=== PATIENT | female | born 1950 | race Caucasian/White ===

== ENCOUNTER 2022-07-03 07:48 | Outpatient (CLI) | payer MEDICARE, SELFPAY ==
--- NOTE | ~2022-07-03 | DEXA_ITS ---
Bone Density Report Name: NICOLAS LUCAS Age: 71 Sex: Female Ethnicity: White Date of : 1950 Indication: postmenopausal; screening for osteoporosis; Referring Provider: ROBBIN, ANKUSH [place] Study: Bone densitometry was performed. Exam Date: July 03, 2022 Accession number: [id number] Bone Density: Region BMD T-score Z-score Classification AP Spine(L1-L4) 0.821 -2.1 0.0 Osteopenia Femoral Neck (Left) 0.636 -1.9 -0.1 Osteopenia Total Hip (Left) 0.710 -1.9 -0.4 Osteopenia Femoral Neck (Right) 0.650 -1.8 0.0 Osteopenia Total Hip (Right) 0.752 -1.6 -0.1 Osteopenia Total Hip Mean 0.731 -1.8 -0.3 Osteopenia World Health Organization criteria for BMD impression classify patients as: Normal (T-score at or above -1.0), Osteopenia (T-score between -1.0 and -2.5), or Osteoporosis (T-score at or below -2.5). 10-year Fracture Risk(1): Major Osteoporotic Fracture 9.9% Hip Fracture 1.9% Reported Risk Factors: [place] (), Neck BMD=0.636, BMI=20.0 (1) FRAX(R) Version 3.08. Fracture probability calculated for an untreated patient. Fracture probability may be lower if the patient has received treatment. Clinical Information Provided by Patient: Has used the following medications: Vitamin D, Calcium Patient maximum height was 65.5 Menopause Age: 47 Drinks caffeinated beverages Onset of menses at age 14 Number of children 3 Impression: The patient has low bone mass, based on the Total Spine T-score. The patient has an estimated ten-year risk of hip fracture of 1.9% and an estimated ten-year risk of major fracture of 9.9%, based on the WHO FRAX algorithm. Discussion: BONE DENSITY IS LOW AT ONE OR MORE SKELETAL SITES. This patient's lowest T-score is low at one or more skeletal sites. It meets the World Health Organization's (WHO) criteria for ?low bone mass? (T-score between -1.0 and -2.5). The patient's 10-year risk of fracture as calculated by FRAX is less than the threshold where pharmacological therapy is recommended by the National Osteoporosis Foundation (NOF). However, all treatment decisions require clinical judgment and consideration of individual patient factors, including patient preferences, comorbidities, previous drug use, risk factors not captured in the FRAX model (e.g., frailty, falls, vitamin D deficiency, increased bone turnover, interval significant decline in bone density) and possible under or overestimation of fracture risk by FRAX. The patient should follow a healthful lifestyle (good nutrition with adequate calcium and vitamin D, and appropriate weight-bearing exercise). Follow-Up: Consider repeating this study in 2 to 3 years to reassess this patient's status, or sooner if there is some new clinical indication. Reported by: CARLINE on 07/03/2022 4:17:00 PM. ___
== END 2022-07-03 07:49 | disposition home or self-care (01) ==
PROVIDERS: Visit Provider Internal Medicine
DX: M85.89 Other specified disorders of bone density and structure, multiple sites (principal)
CPT/HCPCS: 77080

== ENCOUNTER 2025-02-02 10:51 | Emergency (ER) | payer MEDICARE, SELFPAY ==
--- NOTE | ~2025-02-02 | CT_ITS ---
EXAMINATION: CTA chest PE protocol DATE: 02/02/2025 13:26 CDT INDICATION: Shortness of breath TECHNIQUE: Computed tomographic angiography (CTA) of the chest was performed with 100 mL Omnipaque-35 0 intravenous contrast. The dose-length product was 172.89 mGy-cm. Maximum intensity projection 3D-re constructions of the aorta and other arteries were constructed by the technologist on a separate work station. Automated exposure control and iterative reconstruction technique were employed. COMPARISON: Chest dated 02/02/2025 FINDINGS: There is an aberrant right subclavian artery. Study is technically adequate without evidenc e for pulmonary embolism. No thoracic lymphadenopathy. Heart size normal. No significant pleural or p ericardial effusion. Gallbladder is moderately distended. There is a liver cyst, right hepatic lobe. No endobronchial lesions. No pneumothorax. No focal airspace consolidation. No suspicious pulmonary n odules or masses. No acute osseous abnormality. No evidence for aortic aneurysm or dissection. IMPRESSION: 1. No acute cardiopulmonary disease. No evidence for pulmonary embolism. Reviewed, dictated and finalized at location A.
--- NOTE | ~2025-02-02 | XR_ITS ---
EXAMINATION: XR chest 2V 02/02/2025 12:08 INDICATION: Shortness of breath and chest palpitations PROCEDURE: 2 view chest COMPARISON: No prior studies for comparison. FINDINGS: The lungs are clear. The cardiomediastinal silhouette is within normal limits. There are no pleural effusions. There is no pneumothorax suspected. IMPRESSION: 1: NO ACUTE CARDIOPULMONARY DISEASE. Reviewed, dictated and finalized at location A.
--- NOTE | 2025-02-02 11:07 | ECG_ITS ---
Test Date: 2025-02-02 11:12:12 Measurements Intervals [place] Rate: 69 P: 73 WV: 158 QRS: 38 QRSD: 77 T: 43 QT: 401 QTc: 432 Interpretive Statements SINUS RHYTHM WITH OCCASIONAL VENTRICULAR PREMATURE COMPLEXES POSSIBLE LEFT ATRIAL ENLARGEMENT CONSIDER RIGHT VENTRICULAR CONDUCTION DELAY BORDERLINE ECG No previous ECG available for comparison Electronically Signed On 02-02-2025 11:22:18 CDT by Uday Sanchez D.O.
[2025-02-02 11:09] VITALS: BP 166/78; PULSE 74; RESP 17; TEMP 36.8; O2SAT 98
[2025-02-02 11:13] VITALS: PULSE 65; O2SAT 100
[2025-02-02 11:47] LABS: Basophils Percent Auto 0.5 % (0.2-1.2); Eosinophils Absolute Auto 0.1 K/mm3 (0-0.3); Eosinophils Percent Auto 0.9 % (0-4.4); Hematocrit 42.2 % (37.0-47.0); Hemoglobin 13.5 g/dL (12.0-15.0); Immature Granulocyte Absolute 0.01 K/mm3 (0.00-0.031); Immature Granulocyte Percent A 0.2 % (0-0.5); Lymphocytes Absolute Auto 1.25 K/mm3 (0.9-3.2); Lymphocytes Percent Auto 21.8 % (18.3-44.2); Mean Corpuscular Hemoglobin 30.9 pg (26-34); Mean Corpuscular Volume 96.6 fl (80-100); Mean Platelet Volume 9.9 fl (7.4-10.4); Monocytes Absolute Auto 0.4 K/mm3 (0.1-0.6); Monocytes Percent Auto 6.3 % (2.6-8.5); Neutrophils Percent Auto 70.3 % (45.5-73.1); Platelet Count Result 254 k/mm3 (150-375); Red Blood Count 4.37 M/mm3 (4.2-5.4); Red Cell Distribution Width 12.5 % (11.5-14.5); White Blood Count 5.7 K/mm3 (4.5-10.0)
--- OUTSIDE RECORDS SUMMARY | 2025-02-02 11:52 | XMS_ITS | Clinical Summary ---
Author Organization [facility] Address [address] [place] [address] Care Team Providers Care Procurement Technician Name Role Phone Bijan Joy MD Primary Care Provider [phone] Source Comments [facility],non-owned Affiliates and Associated Physician Practices is amultiple site organization consisting of ambulatory clinics and hospital sitesin [place], [place], [place] and [place]. This disclosure is being madepursuant to the Care Everywhere program and may not contain all information available regarding this patient. Last updated 18.[facility] Allergies No known active allergies Medications * Be aware that medications may not be up to date on this document. Alwaysverify current medications with the patient. ciclopirox (Penlac) 8 % solution APPLY 1-2 DROPS TO NAILS DAILY 3 Active nystatin/triamc inolone (Mycolog) 314631-3.1 UNIT/GM-% ointment Apply to affected area 2 times daily 60 g 3 Active Additional Information Patient not taking.Reported on 2023 Active Problems Problem Noted Date Diagnosed Date Encounter for gynecological examination without abnormal finding 06/14/2015 Encounter for routine gynecological examination 03/11/2012 Encounters Date Type Department Care Team Description 11/17/2024 9:30 AM CDT Office Visit [facility] - DRY CLEANING COUNTER CLERK [address] [place] [address] Jane Mendosa MD Well woman exam (Primary Dx) 11/17/2024 Travel from Last 3 Months Immunizations Immunization Administration Dates Next Due INFLUENZA VACCINE 05/31/2018 Family History Medical History Relation Name Comments Heart Disease Father Status: [facility] ed Cancer - Breast Maternal Grandmother Heart Disease Mother Status: [facility] ed Relation Name Status Comments Father Maternal Grandmother Mother Social History Tobacco Use Types Packs/Day Years Used Date Smoking Tobacco: Never Smokeless Tobacco: Never Tobacco Cessation:Counseling Given: Not Answered Alcohol Use Standard Drinks/Week Comments Yes 0 (1 standard drink = 0.6 oz pur e alcohol) Comments No Sex and Gender Information Value Date Recorded Sex Assigned at Not on file 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 Gender Identity Not on file Sexual Orientation Not on file Last Filed Vital Signs Vital Sign Reading Time Taken Comments Blood Pressure 126/66 11/17/2024 9:18 AM CDT Pulse - - Temperature - - Respiratory Rate - - Oxygen Saturation - - Inhaled Oxygen Concentration - - Weight 56.7 kg (125 lb) 11/17/2024 9:18 AM CDT Height 166.4 cm (5' 5.5) 11/17/2024 9:18 AM CDT Body Mass Index 20.48 11/17/2024 9:18 AM CDT Plan of Treatment Upcoming Encounters Date Type Department Care Team (Late st Contact Info) Description 11/23/2025 9:45 AM CDT Office Visit [facility] - DRY CLEANING COUNTER CLERK [address] [place] [address] Jane Castorena MD [address] [place] [address] Health Maintenance Due Date Last Done Comments BONE DENSITY TESTING 1950 COLOGUARD (AGES 45-75) - COLON CA SCREENING 1950 CT COLONOGRAPHY - COLON CA SCREENING 1950 FIT - COLON CA SCREENING 1950 FLEX SIG - COLON CA SCREENING 1950 HEPATITIS C SCREENING 11/08/1970 DTAP/TDAP/TD VACCINES (1 - Tdap) 11/13/1971 PNEUMOCOCCAL VACCINE 50+ (1 of 1 - PCV) 2002 ZOSTER VACCINE (1 of 2) 2002 COVID-19 VACCINE (7 - season) 2024 06/17/2022, 02/06/2022, 06/17/2021, Additional history exists DEPRESSION SCREENING 08/31/2024 MEDICARE AWV CALENDAR YEAR 2024 MAMMOGRAM 08/19/2026 08/19/2024, 08/01, 06/30/2023, Additional history exists Respiratory Syncytial Virus (RSV) Vaccine Pt: or over 60 yrs (1 - 1-dose 75+ series) 11/13/2027 LIPID TESTING 02/23/2029 02/24/2024, 0810/2021, 08/19/2019 COLON MONITORING 10/21/2031 10/21/2021 COLONOSCOPY - COLON CA SCREENING 10/21/2031 10/21/2021 Colorectal Cancer Screening 10/21/2031 INFLUENZA VACCINE Completed 06/16/2024, , 06/03/2021, Additional history exists HEPATITIS B VACCINE Aged Out No longe r eligible based on patient's age to complete this topic HIB VACCINE Aged Out No longer eligi ble based on patient's age to complete this topic HPV VACCINE Aged Out No longer eligi ble based on patient's age to complete this topic MENINGOCOCCAL (Group B) VACCINE SHARED DECISION-MAKING Aged Out No longer eligible based on patient's age to complete this topic MENINGOCOCCAL GROUPS A/C/Y/W VACCINE Aged Out No longer eligible based on patient's age to complete this topic Procedures Procedure Name Priority Date/Time Associated Diagnosis Comments PAP IMAGE-GUIDED W HPV Routine 11/17/2024 10:16 AM CDT Well woman exam HPV PANEL Routine 11/17/2024 10:16 AM CDT Well woman exam MAMMOGRAM Routine 06/30/2023 from Last 3 Months or Most Recently Relevant to Health Maintenance Results * PAP IMAGE-GUIDED W HPV (11/17/2024 10:16 AM CDT) Case Report Gynecologic Cytology Report Case: [id number] Authorizing Provider: Jane Castorena, Collected: 11/17/2024 10:16 AM Ordering Location: [facility] - Received: 11/18/2024 12:05 PM DRY CLEANING COUNTER CLERK First Screen: Marcel Banks CT(ASCP) Specimen: THINPREP - IMAGE GUIDED, Cervix/Endocervix 11/21/2024 10:29 AM CDT [facility] LMP menopause 11/21/2024 10:29 AM CDT [facility] Menstrual Status Postmenopausal 10/30 10:29 AM CDT [facility] Specimen Adequacy Satisfactory for evaluation, endocervical/trans formation zone component present. 11/21/2024 10:29 AM CDT [facility] Categorization Negative for intraepithelial lesion or malignancy. 11/21/2024 10:29 AM CDT [facility] Interpretation TUBE KNITTER Negative for intraepithelial lesion or malignancy. 11/21/2024 10:29 AM CDT [facility] at 1029 CDT Other Atrophic changes. 025 10:29 AM CDT [facility] Pap Footnote The Pap Smear is a screening test. False positive and false negative results occur. Negative results do not preclude abnormalities, thus clinical correlation is required. This specimen was evaluated by the ThinPrep Imaging System along with an additional manual rescreening by a automobile rental representative and/or pathologist. 11/21/2024 10:29 AM CDT [facility] Embedded Images 10:29 AM CDT [facility] Pathology/Cytolo gy MISCELLANEOUS SAMPLES / Unknown 11/17/2024 10:16 AM CDT 11/18/2024 12:05 PM CDT Jane Castorena MD LAB - PATHOLOGY/CYTO LOGY ORDERABLES Final Result [facility] [address] [phone] * HPV PANEL (11/17/2024 10:16 AM CDT) High Risk HPV 16 NEGATIVE NEGATIVE 11/19/2024 12:25 AM CDT [facility] High Risk HPV 18 NEGATIVE NEGATIVE 11/19/2024 12:25 AM CDT [facility] High Risk HPV Other NEGATIVE NEGATIVE 11/19/2024 12:25 AM CDT [facility] Pathology/Cytolo gy MISCELLANEOUS SAMPLES / Unknown 11/17/2024 10:16 AM CDT 11/18/2024 12:05 PM CDT Narrative [facility] - 11/19/2024 12:25 AM CDT This test amplifies DNA of HPV16, HPV18 and twelve other high risk types (31, 33, 35, 39, 45, 51, 52, 56, 58, 59, 66, 68) without differentiation. A negative result does not preclude the presence of HPV infection because results depend on adequate specimen collection, absence of inhibitors and sufficient DNA to be detected. Results should be interpreted in conjunction with other available laboratory and clinical data. Jane Castorena MD LAB - MICROBIOLOGY O RDERABLES Final Result [facility] [address] [place] [address], [facility] [phone] * MAMMOGRAM (06/30/2023) Anatomical Region Laterality Modality Other Historical Provider SCANNING ONLY Final Res ult from Last 3 Months or Most Recently Relevant to Health Maintenance Insurance AETNA AETNA MEDICARE ADV Care Teams Procurement Technician Relationship Specialty [place] [address] [phone] PCP - General 02/23/09
[2025-02-02 11:56] LABS: Alanine Aminotransferase 25 U/L (6-35); Albumin Level 4.6 g/dL (3.5-5.1); Alkaline Phosphatase 46 U/L (38-126); Anion Gap 12 mmol/L (4-12); Aspartate Amino Transferase 33 U/L (14-36); Bilirubin,Total 0.4 mg/dL (0.2-1.3); Blood Urea Nitrogen 16 mg/dL (7-17); Calcium 9.7 mg/dL (8.4-10.2); Carbon Dioxide 24 mmol/L (22-30); Chloride 107 mmol/L (98-107); Estimated Glomerular Filt Rate > 60; Glucose 152 mg/dL (65-110); Potassium 4.1 mmol/L (3.4-5.0); Sodium 143 mmol/L (137-145); Total Protein 7.6 g/dL (6.3-8.2)
--- OUTSIDE RECORDS SUMMARY | 2025-02-02 12:31 | XMS_ITS | Clinical Summary ---
Author Organization [facility] Address [address] [place] [address] Care Team Providers Care Farmworker [employer] Name Role Phone Bijan Joy MD Primary Care Provider [phone] Source Comments [facility],non-owned Affiliates and Associated Physician Practices is amultiple site organization consisting of ambulatory clinics and hospital sitesin [place], [place], [place] and [place]. This disclosure is being madepursuant to the Care Everywhere program and may not contain all information available regarding this patient. Last updated 18.[facility] Allergies No known active allergies Medications * Be aware that medications may not be up to date on this document. Alwaysverify current medications with the patient. ciclopirox (Penlac) 8 % solution APPLY 1-2 DROPS TO NAILS DAILY 3 Active nystatin/triamc inolone (Mycolog) 010094-1.1 UNIT/GM-% ointment Apply to affected area 2 times daily 60 g 3 Active Additional Information Patient not taking.Reported on 2023 Active Problems Problem Noted Date Diagnosed Date Encounter for gynecological examination without abnormal finding 06/14/2015 Encounter for routine gynecological examination 03/11/2012 Encounters Date Type Department Care Team Description 11/17/2024 9:30 AM CDT Office Visit [facility] - TIP STRETCHER [address] [place] [address] Jane Mendosa MD Well woman exam (Primary Dx) 11/17/2024 Travel from Last 3 Months Immunizations Immunization Administration Dates Next Due INFLUENZA VACCINE 05/31/2018 Family History Medical History Relation Name Comments Heart Disease Father Status: [facility] ed Cancer - Breast Maternal Grandmother Heart Disease Mother Status: [facility] ed Relation Name Status Comments Father [...] on file Legal Sex Female 5:28 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 Gender Identity Not on file Sexual Orientation [...] Description 11/23/2025 9:45 AM CDT Office Visit [facility] - TIP STRETCHER [address] [place] [address] Jane Castorena MD [address] [place] [address] Health Maintenance Due Date Last [...] CDT) Case Report Gynecologic Cytology Report Case: [id number] Authorizing Provider: Jane Castorena, Collected: 11/17/2024 10:16 AM Ordering Location: [facility] - Received: 11/18/2024 12:05 PM TIP STRETCHER First Screen: Marcel Banks CT(ASCP) Specimen: THINPREP [...] 10:29 AM CDT [facility] Interpretation BRIM PRESSER Negative for intraepithelial lesion or malignancy. 11/21/2024 [...] with an additional manual rescreening by a contact and service clerks supervisor and/or pathologist. 11/21/2024 10:29 AM CDT [facility] Embedded Images 10:29 AM CDT [facility] Pathology/Cytolo gy MISCELLANEOUS SAMPLES / Unknown 11/17/2024 10:16 AM CDT 11/18/2024 12:05 PM CDT Jane Castorena MD LAB - PATHOLOGY/CYTO LOGY ORDERABLES Final Result [facility] [address] [phone] * HPV PANEL (11/17/2024 10:16 AM CDT) High Risk HPV 16 NEGATIVE NEGATIVE 11/19/2024 12:25 AM CDT [facility] High Risk HPV 18 NEGATIVE NEGATIVE 11/19/2024 12:25 AM CDT [facility] High Risk HPV Other NEGATIVE NEGATIVE 11/19/2024 12:25 AM CDT [facility] Pathology/Cytolo gy MISCELLANEOUS SAMPLES / Unknown 11/17/2024 10:16 AM CDT 11/18/2024 12:05 PM CDT Narrative [facility] - 11/19/2024 12:25 AM CDT [...] LAB - MICROBIOLOGY O RDERABLES Final Result [facility] [address] [place] [address], [facility] [phone] * MAMMOGRAM (06/30/2023) Anatomical Region Laterality Modality Other Historical Provider SCANNING ONLY Final Res ult from Last 3 Months or Most Recently Relevant to Health Maintenance Insurance AETNA AETNA MEDICARE ADV Care Teams Farmworker [employer] Relationship Specialty [place] [address] [phone] PCP - General 02/23/09
--- OUTSIDE RECORDS SUMMARY | 2025-02-02 12:31 | XMS_ITS | Clinical Summary ---
Author Organization [facility] Address [address] [place] [address] Care Team Providers Care Chief Engineer Research Name Role Phone Bijan Joy MD Primary Care Provider [phone] Jane Castorena MD Unavailable [phone] Allergies No known active allergies Medications No known medications Active Problems Problem Noted Date Diagnosed Date Encounter for screening colonoscopy 06/27/2021 Overview (06/27/2021): Added automatically from request for surgery [id number] Surgical History Surgery Date Site/Laterality Comments COLONOSCOPY 05/26/2011 BREAST BIOPSY 1999? benign needle bx, unsure which breast, no scar FLUORO GUIDED INJECTION SHOULDER RIGHT 12/23/2023 Right Family History Medical History Relation Name Comments Breast cancer Father's Sister great aunt Breast cancer Paternal Grandmother Ovarian cancer Neg Hx Thyroid cancer Neg Hx Relation Name Status Comments Father's Sister great aunt Paternal Grandmother Social History Tobacco Use Types Packs/Day Years Used Date Smoking Tobacco: Never Assessed Comments No Sex and Gender Information Value Date Recorded Sex Assigned at Not on file Legal Sex Female 4:37 AM CORRECTIONAL OFFICER SERGEANT Gender Identity Not on file Sexual Orientation Not on file Obstetrics History Para Term AB IAB SAB Ectopic Multiple Livin g Live Births 3 3 3 Date Outcome GA Total Labor Labor/2nd/3rd Weight Sex Type Anes PTL Jacqueline A1 A5 Name Clin Term Term Term Last Filed Vital Signs Vital Sign Reading Time Taken Comments Blood Pressure 126/56 12/23/2023 1:43 PM CDT Pulse 59 12/23/2023 1:43 PM CDT Temperature 36.6 C (97.8 F) 10/21/2021 10:01 AM CORRECTIONAL OFFICER SERGEANT Respiratory Rate 20 12/23/2023 1:43 PM CDT Oxygen Saturation 100% 10/21/2021 10:01 AM CORRECTIONAL OFFICER SERGEANT Inhaled Oxygen Concentration - - Weight 56.7 kg (125 lb) 10/21/2021 8:42 AM CORRECTIONAL OFFICER SERGEANT Height 166.4 cm (5' 5.5) 06/30/2023 12:19 PM CD T Body Mass Index 20.48 10/21/2021 8:42 AM CORRECTIONAL OFFICER SERGEANT Plan of Treatment Health Maintenance Due Date Last Done Comments Depression Screening 1950 Hepatitis C Screening 1950 Osteoporosis Screening-Bone Density Scan 1950 DTaP/Tdap/Td Vaccine (1 - Tdap) 11/13/1963 Hepatitis B Screening 1970 Well Visit 65+ 2017 Pneumococcal vaccine 65+ (2 of 2 - PPSV23) 08/19/2020 08/19/2019 Fall Risk Assessment 10/21/2022 10/21/2021 Breast Cancer Screening-Mammogram 08/19/2025 08/19/2024, 06/30/2023, 05/06/2022, Additional history exists Colon Cancer Screening-Colonoscopy 10/21/2031 10/21/2021, 05/26/2011 Colon Cancer Screening-CT Colonography Discontinued 10/21/2021, 05/26/2011 Colon Cancer Screening-DNA Stool Discontinued 10/21/19 22, 05/26/2011 Colon Cancer Screening-FIT Discontinued 10/21/2021, Colon Cancer Screening-Sigmoidoscopy Discontinued 10/21/2021, 05/26/2011 Zoster Vaccine Completed 07/29/2023, 05/06/2023 Influenza Vaccine Completed 06/16/2024, , 05/31/2018 Procedures Procedure Name Priority Date/Time Associated Diagnosis Comments SCREENING MAMMOGRAM BILATERAL W CHAPIN Schedule Routine, Read Routine (OP Routine) 08/19/2024 10:42 AM CORRECTIONAL OFFICER SERGEANT Screening mammogram, encounter for COLONOSCOPY 10/21/2021 8:30 AM CORRECTIONAL OFFICER SERGEANT from Last 3 Months or Most Recently Relevant to Health Maintenance Results * Screening Mammogram Bilateral W Chapin (08/19/2024 10:42 AM CORRECTIONAL OFFICER SERGEANT) Anatomical Region Laterality Modality Breast Bilateral Mammography 08/19/2024 11:5 9 AM CORRECTIONAL OFFICER SERGEANT Impressions 08/19/2024 11:59 AM CORRECTIONAL OFFICER SERGEANT No evidence of malignancy in either breast. FINAL ASSESSMENT: BI-RADS Category 1: Negative. RECOMMENDATION: Recommend return for annual screening mammogram in 12 months. Electronically signed by: Angel Zhao M.D. Narrative 08/19/2024 11:59 AM CORRECTIONAL OFFICER SERGEANT EXAMINATION: BILATERAL SCREENING MAMMOGRAM COMPARISON: 06/30/2023, 05/06/2022, 04/24/2021, 04/21/2020, 02/17/2019 TECHNIQUE: Full-field 2D and digital breast tomosynthesis (DBT) images were obtained. CAD was utilized. BREAST PARENCHYMAL COMPOSITION: There are scattered areas of fibroglandular density. FINDINGS: There is no suspicious mass, calcification, or distortion in either breast. There is no new suspicious finding in either breast on mammogram. us Self Screening Mammogram IMG MAMMO PROCEDURES Fi nal Result * COLONOSCOPY (10/21/2021 8:30 AM CORRECTIONAL OFFICER SERGEANT) Anatomical Region Laterality Modality Other Narrative Procedure Note Pato Salter MD - 10/21/2021 8:30 AM CST [facility] Patient Name: Nicolas Lucas Procedure Date: 10/21/2021 8:30 AM Date of : 1950 Admit Type: Outpatient Age: 70 Gender: Female Attending MD: Pato Salter M.D. Room: [facility] ENDOSCOPY ROOM 1 Note Status: Finalized Patient Profile: This is a 70 year old female. No family history of colon cancer. No specific GI complaints Procedure: Colonoscopy Indications: Screening for colorectal malignant neoplasm Referring MD: Bijan Joy M.D. Providers: Pato Salter M.D. Impression: - One 5 mm polyp in the proximal sigmoid colon, removed with a jumbo cold forceps. Resected and retrieved. - Diverticulosis in the mid sigmoid colon and inthe distal sigmoid colon. - Internal hemorrhoids. Recommendation: - Await pathology results. - Repeat colonoscopy in 5-8 years for screening purposes. Medicines: Monitored Anesthesia Care Complications: No immediate complications. Estimated Blood Loss: Estimated blood loss: none. Procedure: Pre-Anesthesia Assessment: - Prior to the procedure, a History and Physicalwas performed, and patient medications and allergieswere reviewed. The patient's tolerance of previous anesthesia was also reviewed. The risks andbenefits of the procedure and the sedation options and risks were discussed with the patient. All questions were answered, and informed consent was obtained. Prior Anticoagulants: The patient has taken no previous anticoagulant or antiplatelet agents. ASA Grade Assessment: I - A normal, healthy patient. After reviewing the risks and benefits, the patient was deemed in satisfactory condition to undergo the procedure. The benefits, risks and alternatives of theprocedure and sedation were discussed and informed consentwas obtained. All questions were answered. Please referto the signed informed consent document in the medical record. The bowel preparation used was Miralax and bisacodyl tablets via split dose instruction. The scope was passed under direct vision. The Pediatric Colonoscope PCF-H190L [id number] was introducedthrough the anus and advanced to the the cecum, identifiedby appendiceal orifice and ileocecal valve. Thequality of the bowel preparation was good. Bowel prep was administered using a split dose. Findings: The perianal and digital rectal examinations were normal. The cecum appeared normal. The descending colon, transverse colon and ascending colon appeared normal. A 5 mm polyp was found in the proximal sigmoid colon. The polyp was semi-sessile. The polyp was removed with a jumbo cold forceps.Resection and retrieval were complete. Many small-mouthed diverticula were found in the mid sigmoid colonand distal sigmoid colon. Internal hemorrhoids were found during retroflexion. The hemorrhoids were small. Electronically signed by Pato Salter M.D. Pato Salter M.D. 10/21/2021 9:36:18 AM Number of Addenda: 0 Note Initiated On: 10/21/2021 8:30 AM Procedure Code(s): --- Professional --- 00380, Colonoscopy, flexible; with biopsy, single or multiple Diagnosis Code(s): --- Professional --- Z12.11, Encounter for screening for malignant neoplasm of colon K64.8, Other hemorrhoids K63.5, Polyp of colon K57.30, Diverticulosis of large intestine without perforation orabscess without bleeding CPT copyright 2019 [employer]. All rights reserved. The codes documented in this report are preliminary and upon pianos and organs salesperson reviewmay be revised to meet current compliance requirements. Recognized by the [employer] for promoting quality in endoscopy Pato Salter MD ENDOSCOPY PROCEDURES Final Result from Last 3 Months or Most Recently Relevant to Health Maintenance [place] [address] [place] [address] MEDICARE [place]ICE [place] T MEDICARE Advance Directives For more information, please contact: [phone] * Full Code (Latest Code Status on File) Date Activated Date Inactivated Comments 10/21/2021 8:44 AM 10/21/2021 2:23 PM * Full Code Date Activated Date Inactivated Comments 10/21/2021 8:44 AM 10/21/2021 8:44 AM Care Teams Chief Engineer Research Relationship Specialty Start Date End Date Bijan Joy MD PCP - General 01/22/17 Jane Castorena MD [address] [address] Referring Physician Obstetrics and Gynecology 06/30/23
--- OUTSIDE RECORDS SUMMARY | 2025-02-02 12:31 | XMS_ITS | Referral Summary ---
Author Organization [facility] Address [address] [place] [address] Care Team Providers Care Canary Breeder Name Role Phone Bijan Joy MD Primary Care Provider [phone] Jane Castorena MD Unavailable [phone] Allergies No known active allergies Medications No known medications Active Problems Problem Noted Date Diagnosed Date Encounter for screening colonoscopy 06/27/2021 Overview (06/27/2021): Added automatically from request for surgery [id number] Social History Tobacco Use Types Packs/Day Years Used Date Smoking Tobacco: Never Assessed Comments No Sex and Gender Information Value Date Recorded Sex Assigned at Not on file Legal Sex Female 4:37 AM CARDIOVASCULAR SURGICAL TECH Gender Identity Not on file Sexual Orientation Not on file Last Filed Vital Signs Vital Sign Reading Time Taken Comments Blood Pressure 126/56 12/23/2023 1:43 PM CDT Pulse 59 12/23/2023 1:43 PM CDT Temperature 36.6 C (97.8 F) 10/21/2021 10:01 AM CARDIOVASCULAR SURGICAL TECH Respiratory Rate 20 12/23/2023 1:43 PM CDT Oxygen Saturation 100% 10/21/2021 10:01 AM CARDIOVASCULAR SURGICAL TECH Inhaled Oxygen Concentration - - Weight 56.7 kg (125 lb) 10/21/2021 8:42 AM CARDIOVASCULAR SURGICAL TECH Height 166.4 cm (5' 5.5) 06/30/2023 12:19 PM CD T Body Mass Index 20.48 10/21/2021 8:42 AM CARDIOVASCULAR SURGICAL TECH Plan of Treatment Not on file Procedures Procedure Name Priority Date/Time Associated Diagnosis Comments SCREENING MAMMOGRAM BILATERAL W CHAPIN Schedule Routine, Read Routine (OP Routine) 08/19/2024 10:42 AM CARDIOVASCULAR SURGICAL TECH Screening mammogram, encounter for COLONOSCOPY 10/21/2021 8:30 AM CARDIOVASCULAR SURGICAL TECH from Last 3 Months or Most Recently Relevant to Health Maintenance Results * Screening Mammogram Bilateral W Chapin (08/19/2024 10:42 AM CARDIOVASCULAR SURGICAL TECH) Anatomical Region Laterality Modality Breast Bilateral Mammography 08/19/2024 11:5 9 AM CARDIOVASCULAR SURGICAL TECH Impressions 08/19/2024 11:59 AM CARDIOVASCULAR SURGICAL TECH No evidence of malignancy in either breast. FINAL ASSESSMENT: BI-RADS Category 1: Negative. RECOMMENDATION: Recommend return for annual screening mammogram in 12 months. Electronically signed by: Angel Zhao M.D. Narrative 08/19/2024 11:59 AM CARDIOVASCULAR SURGICAL TECH EXAMINATION: BILATERAL SCREENING MAMMOGRAM COMPARISON: 06/30/2023, 05/06/2022, [...] nal Result * COLONOSCOPY (10/21/2021 8:30 AM CARDIOVASCULAR SURGICAL TECH) Anatomical Region Laterality Modality Other Narrative Procedure Note Pato Salter MD - 10/21/2021 8:30 AM CST [facility] Patient Name: Nicolas Lucas Procedure Date: 10/21/2021 8:30 AM Date of : 1950 Admit Type: Outpatient Age: 70 Gender: Female Attending MD: Pato Salter M.D. Room: [facility] ENDOSCOPY ROOM 1 Note Status: Finalized Patient [...] under direct vision. The Pediatric Colonoscope PCF-H190L [id number] was introducedthrough the anus and advanced to [...] 8:30 AM Procedure Code(s): --- Professional --- 68927, Colonoscopy, flexible; with biopsy, single or multiple Diagnosis Code(s): --- Professional --- Z12.11, Encounter for screening for malignant neoplasm of colon K64.8, Other hemorrhoids K63.5, Polyp of colon K57.30, Diverticulosis of large intestine without perforation orabscess without bleeding CPT copyright 2019 [employer]. All rights reserved. The codes documented in this report are preliminary and upon certified professional coder reviewmay be revised to meet current compliance requirements. Recognized by the [employer] for promoting quality in endoscopy Pato Salter MD ENDOSCOPY PROCEDURES Final Result from Last 3 Months or Most Recently Relevant to Health Maintenance Insurance [employer] [facility] MED[facility] CHOICE PLUS [facility] HMO/PPO Address: [address] [address] [place] [address] [facility] MEDICARE ADVANTAGE [facility] MEDIC[facility] Address: [address] [address] [place] [address] MEDICARE MEDICARE Advance Directives For more information, please contact: [phone] * Full Code (Latest Code Status on File) Date Activated Date Inactivated Comments 10/21/2021 8:44 AM 10/21/2021 2:23 PM * Full Code Date Activated Date Inactivated Comments 10/21/2021 8:44 AM 10/21/2021 8:44 AM Care Teams Canary Breeder Relationship Specialty Start Date End Date Bijan Joy MD PCP - General 01/22/17 Jane Castorena MD [address] [address] Referring Physician Obstetrics and Gynecology 06/30/23
--- NOTE | 2025-02-02 12:43 | ED_ITS ---
HPI - SOB/Dyspnea General Chief Complaint: Shortness of Breath/Dyspnea Stated Complaint: SOB, rapid HR Time Seen by Provider: 02/02/25 11:13 History of Present Illness HPI Narrative: Patient is a 74-year-old female who presents to the ER with complaints of shortness of breath and palpitations. She reports her symptoms started on Thursday, 5 days ago. Patient reports she walks every day and started experiencing increased shortness of breath while she was walking. She reports the symptoms have occurred intermittently since then. Patient denies any alcohol use or cigarette smoking. She also endorses right shoulder/upper arm pain for which she sees an orthopedic surgeon. Patient denies any recent fevers, lower extremity swelling, or back pain. She denies any medical history and reports she does not take any daily medications. Related Data Allergies Allergy/AdvReac Type Severity Reaction Status Date / Time No Known Allergies Allergy Verified 02/02/25 11:12 Review of Systems 2 Review of Systems: All systems reviewed & are unremarkable except as noted in HPI and below Exam 2 Narrative: GENERAL: Well appearing, well-nourished, non-toxic, in no acute distress. HEAD: Normocephalic, atraumatic. NECK: Supple. No adenopathy, no masses. RESPIRATORY: Airway patent, respirations nonlabored. Clear to auscultation bilaterally, no rales, rhonchi, wheezing. CARDIOVASCULAR: Regular rate and rhythm without murmurs, rubs, or gallops. Peripheral pulses 2+ and equal bilaterally. ABDOMINAL: Soft, nontender, nondistended, no hepatosplenomegaly. Normoactive BS. MUSCULOSKELETAL: Moves all extremities. Strength/ROM intact without gross deformities. R shoulder tight with manipulation, pain is reproducible. SKIN: Warm, dry, normal color. No rashes. NEURO: A&O X3. Speech clear. Cranial nerves II-XII intact. No ataxic movements. PSYCHIATRIC: Appropriate mood and affect. Normal interaction. Course Vital Signs Vital signs: Vital Signs Temperature 36.8 C 02/02/25 11:09 Pulse Rate 74 02/02/25 11:09 Respiratory Rate 17 02/02/25 11:09 Blood Pressure 166/78 H 02/02/25 11:09 Pulse Oximetry 98 02/02/25 11:09 Oxygen Delivery Room Air 02/02/25 11:09 Temperature 36.8 C 02/02/25 11:09 Pulse Rate 65 02/02/25 14:04 Respiratory Rate 14 02/02/25 14:04 Blood Pressure 166/69 H 02/02/25 14:04 Pulse Oximetry 95 02/02/25 14:04 Oxygen Delivery Room Air 02/02/25 11:13 MDM - SOB/Dyspnea MDM Narrative Medical decision making narrative: Patient is a 74-year-old female who presents to the ER with complaints of shortness of breath and palpitations. She reports her symptoms started on Thursday, 5 days ago. Patient reports she walks every day and started experiencing increased shortness of breath while she was walking. She reports the symptoms have occurred intermittently since then. Patient denies any alcohol use or cigarette smoking. She also endorses right shoulder/upper arm pain for which she sees an orthopedic surgeon. Patient denies any recent fevers, lower extremity swelling, or back pain. She denies any medical history and reports she does not take any daily medications. Labs Ordered: CBC, CMP, troponin, TSH, magnesium, COVID/flu/RSV swab Imaging Ordered: CTA chest PE, chest x-ray Medications Ordered: 1 L normal saline IV bolus Results: Pt's CT scan indicates No acute cardiopulmonary disease. No evidence for pulmonary embolism. Diagnosis: chest palpitations, shortness of breath, mild dehydration, primary hypertension Risks: HEART score: low risk HEART Score for Major Cardiac Events from [email or web address] on 02/02/2025 All calculations should be rechecked by clinician prior to use RESULT SUMMARY: 2 points Low Score (0-3 points) Risk of MACE of 0.9-1.7%. INPUTS: History ?> 0 = Slightly suspicious EKG ?> 0 = Normal Age ?> 2 = >=5 Risk factors ?> 0 = No known risk factors Initial troponin ?> 0 = <=Normal limit Patient Education/Shared MDM: Results of lab work and imaging shared with patient. Patient strongly advised to maintain hydration status upon discharge and follow-up with their PCP as soon as possible regarding her elevated blood pressure readings here in the ER. She will not be discharged home with any new prescriptions. Strict return precautions provided. Patient verbalized understanding and is in agreement with plan. Vital signs stable at time of discharge. All questions answered. Differential Diagnosis Differential diagnosis: Likely community acquired pneumonia, pulmonary embolism and other (Atypical chest pain, shortness of breath) Lab Data Attestation: I reviewed the patient's lab results. 02/02/25 11:24 02/02/25 11:24 Labs: Lab Results 02/02/25 02/02/25 02/02/25 Range/Units 11:24 12:24 12:53 WBC 5.7 (4.5-10.0) K/mm3 RBC 4.37 (4.2-5.4) M/mm3 Hgb 13.5 (12.0-15.0) g/dL Hct 42.2 (37.0-47.0) % MCV 96.6 (80-100) fl MCH 30.9 (26-34) pg MCHC 32.0 (32-36) g/dl RDW 12.5 (11.5-14.5) % Plt Count 254 (150-375) k/mm3 MPV 9.9 (7.4-10.4) fl Immature Gran % (Auto) 0.2 (0-0.5) % Neut % (Auto) 70.3 (45.5-73.1) % Lymph % (Auto) 21.8 (18.3-44.2) % Gaston % (Auto) 6.3 (2.6-8.5) % Eos % (Auto) 0.9 (0-4.4) % Baso % (Auto) 0.5 (0.2-1.2) % Lymph # (Auto) 1.25 (0.9-3.2) K/mm3 Gaston # (Auto) 0.4 (0.1-0.6) K/mm3 Eos # (Auto) 0.1 (0-0.3) K/mm3 Baso # (Auto) 0.0 (0.0-0.1) K/mm3 Abs Immat Gran (auto) 0.01 (0.00-0.031) K/mm3 Absolute Neuts (auto) 4.0 (1.3-6.7) K/mm3 Absolute Nucleated RBC 0.000 (0.0-0.012) K/mm3 Nucleated RBC % 0.0 (0.0-0.2) % Sodium 143 (137-145) mmol/L Potassium 4.1 (3.4-5.0) mmol/L Chloride 107 (98-107) mmol/L Carbon Dioxide 24 (22-30) mmol/L Anion Gap 12 (4-12) mmol/L BUN 16 (7-17) mg/dL Creatinine 0.62 L (0.7-1.0) mg/dL Estim Creat Clear Calc Not Reportable Estimated GFR > 60 (59 - ) Glucose 152 H (65-110) mg/dL Calcium 9.7 (8.4-10.2) mg/dL Magnesium 2.0 (1.6-2.3) mg/dL Total Bilirubin 0.4 (0.2-1.3) mg/dL AST 33 (14-36) U/L ALT 25 (6-35) U/L Alkaline Phosphatase 46 (38-126) U/L Troponin I < 0.012 (0.000-0.034) ng/mL Total Protein 7.6 (6.3-8.2) g/dL Albumin 4.6 (3.5-5.1) g/dL TSH (Reflex) 1.050 (0.465-4.68) uIU/mL Influenza A (RT-PCR) Negative (Negative) Influenza B (RT-PCR) Negative (Negative) RSV (RT-PCR) Negative (Negative) SARS-CoV-2 RNA (RT-PCR) Negative (Negative) Imaging Data Attestation: I personally reviewed and interpreted this imaging study as follows: Radiologist's impression: Impressions Chest X-Ray 02/02/25 12:08 IMPRESSION: 1: NO ACUTE CARDIOPULMONARY DISEASE. Chest CTA 02/02/25 13:26 IMPRESSION: 1. No acute cardiopulmonary disease. No evidence for pulmonary embolism. Discharge Plan Discharge Clinical Impression: Atypical chest pain, Mild shortness of breath, Hypertension, Dehydration, mild Patient Disposition: Home Condition: Stable Instructions: Antibiotic Form, Shortness of Breath (ED) Additional Instructions: Please return to the ER with any worsening symptoms. Follow-up with primary care provider as soon as possible for follow-up on your blood pressure. Continue staying active and drinking lots of water. Patient Language: Grenadian Follow-up/Referrals: Rufino,Bijan York MD [Primary Care Provider] - Time of Disposition: 14:54
[2025-02-02 12:55] VITALS: BP 176/76; PULSE 53; RESP 12; O2SAT 99
[2025-02-02] MEDS: SODIUM CHLORIDE 0.9% IV 1,000 ML 999 ML IV CONT (12:55)
--- NOTE | 2025-02-02 12:57 | PC.NURSE ---
called lab to add on MG, Trop I, and TSH Reflex
[2025-02-02 13:37] LABS: Influenza A QL RT-PCR Negative (Negative); Influenza B QL RT-PCR Negative (Negative); RSV RNA, RT-PCR Negative (Negative); SARS-CoV-2 RNA PCR Negative (Negative)
[2025-02-02 14:04] VITALS: BP 166/69; PULSE 65; RESP 14; O2SAT 95
[2025-02-02 14:24] LABS: Troponin I < 0.012 ng/mL (0.000-0.034)
[2025-02-02 15:02] VITALS: BP 153/63; PULSE 89; RESP 18; O2SAT 97
== END 2025-02-02 15:05 | disposition home or self-care (01) ==
PROVIDERS: Emergency Medicine; Emergency Provider Registered Nurse; PCP Internal Medicine
DX: E86.0 Dehydration (principal); R06.02 Shortness of breath; R07.89 Other chest pain; I10 Essential (primary) hypertension; Z20.822 Contact with and (suspected) exposure to COVID-19; I49.3 Ventricular premature depolarization; R94.31 Abnormal electrocardiogram [ECG] [EKG]
CPT/HCPCS: 36415; 71046; 71275; 80053; 83735; 84443; 84484; 85025; 87637; 93005; 96360; 99284; J7030; Q9967